=== PATIENT | female | born 1990 | race Hispanic/Latino ===

== ENCOUNTER 2024-04-06 15:26 | Emergency (ER) | payer MEDICAID ==
[~2024-04-06] VITALS: Ht 167.6 cm; Wt 78.6 kg
[2024-04-06] MEDS ORDERED: VENTOLIN HFA18 GM INH (15:36)
[2024-04-06] MEDS ORDERED: SODIUM CHLORIDE 0.9% 1,000 ML IV PRN (15:45)
[2024-04-06 15:50] LABS: EOSINOPHILS 1.9 % (0-6); HEMOGLOBIN 11.8 g/dL (12.0-18.0)
[2024-04-06 15:53] LABS: BASOPHILS 0.6 % (0-2); HEMATOCRIT 35.9 % (35.0-50.0); LYMPHOCYTES 30.6 % (24-44); MCH 29.2 (27-36); MCHC 32.9 g/dl (30-36); MCV 88.8 fl (81-99); NEUTROPHILS 60.9 % (39-80); PLATELET COUNT 336 K/uL (140-440); RBC 4.05 M/ul (4.3-5.7); RDW 14.9 (10.5-15.0)
[2024-04-06 16:05] LABS: ALBUMIN 3.7 g/dL (3.4-5.0); ANION GAP 12.9 (7-21); BILIRUBIN, TOTAL 0.2 ng/dL (0.2-1.0); BUN/CREATININE RATIO 26.74 (6.0-28.6); CREATININE, SERUM 0.86 mg/dL (0.55-1.02); POTASSIUM 3.9 mmol/L (3.5-5.1); PROTEIN, TOTAL 7.4 g/dL (6.4-8.2)
[2024-04-06] MEDS ORDERED: ALBUTEROL/IPRATROPIUM 3 ML NEB INH ONE (16:15)
[2024-04-06 17:27] LABS: AMPHETAMINES, URINE NEGATIVE (NEGATIVE); BARBITURATES, URINE NEGATIVE (NEGATIVE); BENZODIAZEPINE, URINE NEGATIVE (NEGATIVE); BUPRENORPHINE, URINE NEGATIVE (NEGATIVE); CANNABINOID, URINE POSITIVE (NEGATIVE); COCAINE, URINE NEGATIVE (NEGATIVE); ECSTASY, URINE NEGATIVE (NEGATIVE); FENTANYL, URINE NEGATIVE (NEGATIVE); METHADONE, URINE NEGATIVE (NEGATIVE); OPIATES, URINE NEGATIVE (NEGATIVE); OXYCODONE, URINE NEGATIVE (NEGATIVE); PHENCYCLIDINE, URINE NEGATIVE (NEGATIVE)
[2024-04-06] MEDS ORDERED: PREDNISONE20 MG PO (17:49)
[2024-04-06 18:00] VITALS: BP 130/73
== END 2024-04-06 18:00 | disposition home or self-care (01) ==
LOC: ED 15:26
PROVIDERS: Emergency Medicine
DX: T40.601A Poisoning by unspecified narcotics, accidental (unintentional), initial encounter (principal); J45.909 Unspecified asthma, uncomplicated; Z79.899 Other long term (current) drug therapy
CPT/HCPCS: 36415; 71045; 80053; 80307; 85025; 94640; 99285-25; G0480; J7030